=== PATIENT | male | born 1965 | race Hispanic/Latino ===

== ENCOUNTER 2017-03-24 18:48 | Inpatient (IN) | payer MEDICARE ==
[~2017-03-24] VITALS: Ht 175.3 cm; Wt 110.6 kg
[~2017-03-24 18:48] MED LIST: (None)3.5 GM OP; AMOXICILLIN500 MG PO; BACTRIM1 TAB OR; DEXAMETHAS0.5 MG/5 M PO; ESOMEPRAZOLE MA40 MG PO; GENTAMICIN15 ML/BTL OP; HYDROCHLORO25 MG/TAB PO; HYDROCHLOROT12.5 MG OR; LANTUS100 MG/ML SC; LEVEMIR1000 UNITS SC; LISINOP/HCTZ1 TA1 PO; LISINOPRIL10 MG PO; LORTAB 5 OR; LORTAB5 PO; LYRICA150 MG PO; METFORMIN1000 MG PO; METFORMIN500 MG PO; METHADONE HCL10 MG PO; METHADONE10 MG OR; METHADONE10 MG PO; NORVASC10 M1 OR; NORVASC10 M1 PO; NOVOLIN 70/30 SC; NOVOLIN R1000 UNITS IV; OXYCODONE PO; OXYCODONE15 MG OR; OXYCODONE15 MG PO; PEPCID20 MG PO; PERCOCET 10/31 COMBO PO; PERCOCET 5/325M1 TAB OR; RITALIN10 MG PO; SIMVASTATIN10 MG PO; TIZANIDINE4 MG PO; ZESTRIL OR; ZOVIRAX200 MG OR
[2017-03-24 19:53] LABS: HEMOGLOBIN 9.3 g/dl (14.0-18.0); IMMATURE GRANULOCYTES 2.5 % (0.0-1.0); MEAN CELL VOLUME 91.2 fL CALC (80.0-100.0); MEAN CORPUSCULAR HGB 31.4 pG CALC (26.0-32.0); MEAN CORPUSCULAR HGB CONC 34.4 g/L CALC (32.0-36.0); NEUT# 11.44 thou/uL (1.82-7.42); RED BLOOD COUNT 2.96 mill/uL (4.70-6.10); RED CELL DISTRI WIDTH 13.4 % (11.5-15.5)
[2017-03-24 20:01] LABS: ALBUMIN 3.9 g/dL (3.2-5.0); BILIRUBIN, TOTAL 2.6 mg/dL (0.0-1.4); CALCIUM 8.4 mg/dL (8.4-10.2); CREATININE 2.4 mg/dL (0.7-1.3); POTASSIUM 3.7 mmol/l (3.5-5.1); TOTAL PROTEIN 7.5 g/dL (6.3-8.2)
[2017-03-24 21:30] LABS: URINE BILIRUBIN - DIPSTICK NEGATIVE (NEGATIVE); URINE BLOOD DIPSTICK TRACE-INTACT (NEGATIVE); URINE CLARITY CLEAR; URINE COLOR YELLOW; URINE GLUCOSE - DIPSTICK NEGATIVE (NEGATIVE); URINE KETONE NEGATIVE (NEGATIVE); URINE NITRITE - DIPSTICK NEGATIVE (Negative); URINE PH 5.5 (4.5-8.0); URINE PROTEIN - DIPSTICK TRACE mg/dL (NEG-TRACE); URINE SPECIFIC GRAVITY 1.015
[2017-03-24 21:31] LABS: URINE LEUK ESTERASE SMALL (NEGATIVE)
[2017-03-24 21:42] VITALS: BP 140/82
[2017-03-24 21:42] LABS: URINE SQUAMOUS EPITHELIAL CELL FEW EPI/hpf (0-FEW)
[2017-03-24 21:43] LABS: URINE BACTERIA RARE hpf
[2017-03-25 04:23] VITALS: BP 119/69
[2017-03-25 05:31] LABS: HEMATOCRIT 25.6 % (39.0-50.0); HEMOGLOBIN 8.7 g/dl (14.0-18.0); IMMATURE GRANULOCYTES 3.4 % (0.0-1.0); MEAN CELL VOLUME 91.1 fL CALC (80.0-100.0); NEUT# 9.78 thou/uL (1.82-7.42); RED BLOOD COUNT 2.81 mill/uL (4.70-6.10); RED CELL DISTRI WIDTH 13.6 % (11.5-15.5)
[2017-03-25 05:48] LABS: CALCIUM 8.4 mg/dL (8.4-10.2); CREATININE 1.8 mg/dL (0.7-1.3); POTASSIUM 3.8 mmol/l (3.5-5.1)
[2017-03-25 07:36] VITALS: BP 117/70
[2017-03-25 13:38] VITALS: BP 109/64
[2017-03-25 16:00] VITALS: BP 101/61
[2017-03-25 19:00] VITALS: BP 120/71
[2017-03-26 04:00] VITALS: BP 121/71
[2017-03-26 06:08] LABS: HEMATOCRIT 25.3 % (39.0-50.0); HEMOGLOBIN 8.9 g/dl (14.0-18.0); MEAN CELL VOLUME 92.3 fL CALC (80.0-100.0); MEAN CORPUSCULAR HGB 32.5 pG CALC (26.0-32.0); MEAN CORPUSCULAR HGB CONC 35.2 g/L CALC (32.0-36.0); PLATELET COUNT 150 thou/uL (130-400); RED BLOOD COUNT 2.74 mill/uL (4.70-6.10); RED CELL DISTRI WIDTH 13.3 % (11.5-15.5)
[2017-03-26 06:09] LABS: LYMPH% 13 % (15-41); MONO% 9 % (2-13); NEUT% 78 % (42-76)
[2017-03-26 06:22] LABS: ANION GAP 16 (6-22 (CALC)); BUN 30 mg/dL (9-20); BUN/CREATININE RATIO 25 (12-20 (CALC)); CALCIUM 8.6 mg/dL (8.4-10.2); CARBON DIOXIDE 25 mmol/l (22-30); CHLORIDE 107 mmol/l (95-108); CREATININE 1.2 mg/dL (0.7-1.3); GFR > 60 ML/MIN (>=60 (CALC)); GFR FOR AFR.AMER. > 60 ML/MIN (>=60 (CALC)); GLUCOSE 142 mg/dL (75-110); POTASSIUM 4.6 mmol/l (3.5-5.1); SODIUM 144 mmol/l (137-146)
[2017-03-26 08:22] VITALS: BP 114/68
[2017-03-26 16:00] VITALS: BP 125/62
[2017-03-26 19:15] VITALS: BP 116/63
[2017-03-27 03:35] VITALS: BP 106/66
[2017-03-27 05:53] LABS: HEMOGLOBIN 7.8 g/dl (14.0-18.0); IMMATURE GRANULOCYTES 1.1 % (0.0-1.0); MEAN CELL VOLUME 94.5 fL CALC (80.0-100.0); MEAN CORPUSCULAR HGB 30.7 pG CALC (26.0-32.0); MEAN CORPUSCULAR HGB CONC 32.5 g/L CALC (32.0-36.0); NEUT# 6.65 thou/uL (1.82-7.42); RED BLOOD COUNT 2.54 mill/uL (4.70-6.10); RED CELL DISTRI WIDTH 13.6 % (11.5-15.5)
[2017-03-27 06:09] LABS: ANION GAP 16 (6-22 (CALC)); BUN 25 mg/dL (9-20); BUN/CREATININE RATIO 21 (12-20 (CALC)); CALCIUM 8.5 mg/dL (8.4-10.2); CARBON DIOXIDE 22 mmol/l (22-30); CHLORIDE 108 mmol/l (95-108); CREATININE 1.2 mg/dL (0.7-1.3); GFR > 60 ML/MIN (>=60 (CALC)); GFR FOR AFR.AMER. > 60 ML/MIN (>=60 (CALC)); GLUCOSE 88 mg/dL (75-110); POTASSIUM 3.9 mmol/l (3.5-5.1); SODIUM 143 mmol/l (137-146)
[2017-03-27 08:23] VITALS: BP 133/78
[2017-03-27 15:07] VITALS: BP 125/67
[2017-03-27 20:56] VITALS: BP 136/77
[2017-03-28] VITALS (9 sets, daily range): BP systolic 127–136; BP diastolic 52–72
[2017-03-28 05:57] LABS: ANION GAP 19 (6-22 (CALC)); BUN 20 mg/dL (9-20); BUN/CREATININE RATIO 19 (12-20 (CALC)); CALCIUM 8.7 mg/dL (8.4-10.2); CARBON DIOXIDE 18 mmol/l (22-30); CHLORIDE 109 mmol/l (95-108); GFR > 60 ML/MIN (>=60 (CALC)); GFR FOR AFR.AMER. > 60 ML/MIN (>=60 (CALC)); GLUCOSE 69 mg/dL (75-110); POTASSIUM 4.7 mmol/l (3.5-5.1); SODIUM 141 mmol/l (137-146)
[2017-03-28 05:58] LABS: HEMOGLOBIN 8.3 g/dl (14.0-18.0); MEAN CORPUSCULAR HGB 31.2 pG CALC (26.0-32.0); MEAN CORPUSCULAR HGB CONC 33.2 g/L CALC (32.0-36.0); NEUT# 7.19 thou/uL (1.82-7.42); RED BLOOD COUNT 2.66 mill/uL (4.70-6.10); RED CELL DISTRI WIDTH 13.7 % (11.5-15.5)
== END 2017-03-28 18:09 | DRG 617 ==
LOC: ED 18:48 → ED-I 20:45 → ED 21:01 → MS2 21:02
PROVIDERS: Emergency Medicine; Internal Medicine; ADMIT Internal Medicine; ATTEND Internal Medicine
PROC: 0Y6P0Z0 Detachment at Right 1st Toe, Complete, Open Approach (ICD-10-PCS; principal; 2017-03-28)
PROC: 0QBN0ZZ Excision of Right Metatarsal, Open Approach (ICD-10-PCS; 2017-03-28)
DX: E11.621 Type 2 diabetes mellitus with foot ulcer (principal); M86.9 Osteomyelitis, unspecified; N17.9 Acute kidney failure, unspecified; I95.9 Hypotension, unspecified; E11.65 Type 2 diabetes mellitus with hyperglycemia; Z94.81 Bone marrow transplant status; L03.115 Cellulitis of right lower limb; E11.51 Type 2 diabetes mellitus with diabetic peripheral angiopathy without gangrene; L02.611 Cutaneous abscess of right foot; M84.477A Pathological fracture, right toe(s), initial encounter for fracture; E11.69 Type 2 diabetes mellitus with other specified complication; L97.514 Non-pressure chronic ulcer of other part of right foot with necrosis of bone; E11.42 Type 2 diabetes mellitus with diabetic polyneuropathy; E11.628 Type 2 diabetes mellitus with other skin complications; E86.9 Volume depletion, unspecified; Z79.891 Long term (current) use of opiate analgesic; Z85.6 Personal history of leukemia; Z92.21 Personal history of antineoplastic chemotherapy; Z79.4 Long term (current) use of insulin
CPT/HCPCS: J3370

== ENCOUNTER 2017-04-13 01:23 | Emergency (ER) | payer MEDICARE ==
[~2017-04-13] VITALS: Ht 175.3 cm; Wt 104.5 kg
[2017-04-13 02:06] VITALS: BP 118/57
== END 2017-04-13 02:06 | disposition home or self-care (01) ==
LOC: ED 01:23
DX: Z48.01 Encounter for change or removal of surgical wound dressing (principal); E11.9 Type 2 diabetes mellitus without complications; I10 Essential (primary) hypertension; Z85.6 Personal history of leukemia; Z94.81 Bone marrow transplant status; Z89.429 Acquired absence of other toe(s), unspecified side

== ENCOUNTER 2017-04-29 23:28 | Emergency (ER) | payer MEDICARE, MEDICAID ==
[2017-04-30] LABS: HEMATOCRIT 28.1 % (39.0-50.0); MEAN CELL VOLUME 104.5 fL CALC (80.0-100.0); MEAN CORPUSCULAR HGB 29.7 pG CALC (26.0-32.0); MEAN CORPUSCULAR HGB CONC 28.5 g/L CALC (32.0-36.0); NEUT# 13.48 thou/uL (1.82-7.42); RED BLOOD COUNT 2.69 mill/uL (4.70-6.10); RED CELL DISTRI WIDTH 16.6 % (11.5-15.5)
[2017-04-30 00:04] LABS: ALBUMIN 3.7 g/dL (3.2-5.0); ALKALINE PHOSPHATASE 150 u/l (38-126); BUN 25 mg/dL (9-20); BUN/CREATININE RATIO 8 (12-20 (CALC)); CALCIUM 9.1 mg/dL (8.4-10.2); CARBON DIOXIDE 13 mmol/l (22-30); CHLORIDE 99 mmol/l (95-108); CREATININE 3.1 mg/dL (0.7-1.3); GFR 21 ML/MIN (>=60 (CALC)); GFR FOR AFR.AMER. 26 ML/MIN (>=60 (CALC)); SGOT/AST 155 u/l (17-59); SGPT/ALT 117 u/l (21-72); SODIUM 137 mmol/l (137-146); TOTAL PROTEIN 8.8 g/dL (6.3-8.2)
[2017-04-30 00:05] LABS: INTERNATIONAL NORMALIZED RATIO 1.2 RATIO (0.7-1.3); PROTHROMBIN TIME 13.1 SECONDS (9.0-12.5)
[2017-04-30 00:05] LABS: ANION GAP 31 (6-22 (CALC))
[2017-04-30 00:06] LABS: GLUCOSE 471 mg/dL (75-110); POTASSIUM 6.4 mmol/l (3.5-5.1)
[2017-04-30 00:54] LABS: MYOGLOBIN 1277 ng/mL (0 - 121)
== END 2017-04-30 00:23 | disposition expired ==
LOC: ED 23:28
PROC: 0BH17EZ Insertion of Endotracheal Airway into Trachea, Via Natural or Artificial Opening (ICD-10-PCS; principal; 2017-04-29)
PROC: 5A12012 Performance of Cardiac Output, Single, Manual (ICD-10-PCS; 2017-04-29)
DX: I46.9 Cardiac arrest, cause unspecified (principal); I10 Essential (primary) hypertension; E11.9 Type 2 diabetes mellitus without complications; C95.90 Leukemia, unspecified not having achieved remission; Z94.81 Bone marrow transplant status; G61.0 Guillain-Barre syndrome; M25.50 Pain in unspecified joint; M86.9 Osteomyelitis, unspecified; D41.9 Neoplasm of uncertain behavior of unspecified urinary organ; Z79.2 Long term (current) use of antibiotics